=== PATIENT | male | born 1995 | race Caucasian/White ===

== ENCOUNTER → 2025-04-16 | Outpatient (CLI) | payer SELFPAY ==
--- NOTE | 2025-04-16 10:09 | RAD_ITS ---
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 No sacral fractures are noted. SI joints are unremarkable. There are 5 lumbar-type vertebral bodies below the last set of paired ribs. The vertebral body heights are within normal limits. There is no spondylolysis. The lumbar vertebral bodies alignment are within normal limits. There is no spondylolisthesis. There is no instability on the flexion or extension views. There is no spondylosis. Intervertebral disc spaces are well-maintained. Paravertebral soft tissue structures are unremarkable. RAD/L/S Spine Comp/w Bending Views IMPRESSION: Unremarkable lumbosacral spine study. Reading Location: [id number]
== END | disposition home or self-care (01) ==
PROVIDERS: Referring Provider Chiropractor Orthopedic; Visit Provider Chiropractor Orthopedic
DX: M99.03 Segmental and somatic dysfunction of lumbar region (principal); M99.01 Segmental and somatic dysfunction of cervical region
CPT/HCPCS: 72114